=== PATIENT | male | born 1945 | race Caucasian/White ===

== ENCOUNTER → 2020-11-08 | Outpatient (CLI) | payer MEDICARE, OTHER ==
[~2020-11-08] MED LIST: COQ-10100 MG PO; ECOTRIN81 MG PO; FLOMAX0.4 MG PO; LIORESAL TAB 1010 MG PO; MOBIC7.5 MG PO; NORCO 5-325 TA1 EACH PO; PROSCAR5 MG PO; THERAGRAN M TAB1 EA PO; VITAMIN D2000 UNI1 PO; ZOCOR20 MG PO
== END ==
LOC: KOH-I 14:18
DX: M25.512 Pain in left shoulder (principal)
CPT/HCPCS: 73030

== ENCOUNTER → 2021-01-03 | Outpatient (CLI) | payer MEDICARE, OTHER | LOC: KOH-I 15:15 | DX: M25.512 Pain in left shoulder (principal); M75.52 Bursitis of left shoulder | CPT/HCPCS: 73221 ==

== ENCOUNTER → 2021-05-18 | Outpatient (CLI) | payer MEDICARE, OTHER | LOC: KOH-I 11:30 | DX: J18.9 Pneumonia, unspecified organism (principal) | CPT/HCPCS: 71046 ==